=== PATIENT | female | born 1945 | race Caucasian/White ===

== ENCOUNTER 2021-03-19 18:14 | Inpatient (IN) | payer OTHER, MEDICAID ==
[~2021-03-19] VITALS: Ht 167.6 cm; Wt 84.4 kg
[2021-03-19] MEDS ORDERED: SODIUM CHLORIDE 0.9% 1,000 ML IV ONE ×3 (19:00→20:45)
[2021-03-19 19:26] LABS: BASOPHILS % 0.5 % (0.0-2.0); EOSINOPHILS % 4.4 % (0.0-5.0); HEMATOCRIT. 34.1 % (36.0-48.0); HEMOGLOBIN. 10.8 g/dL (12.0-16.0); LYMPHOCYTES % 19.7 % (20.0-50.0); MEAN CORPUSCULAR HEMOGLOBIN 29.8 pg (28.0-32.0); MEAN CORPUSCULAR VOLUME 93.6 fL (81.0-99.0); MEAN PLATELET VOLUME 9.6 fl (7.4-10.4); MONOCYTES % 4.5 % (2.0-8.0); NEUTROPHILS % 70.9 % (40.0-76.0); PLATELET 134 x1000/uL (130-400); RED BLOOD CELL COUNT 3.64 mill/uL (4.2-5.4); RED CELL DISTRIBUTION WIDTH 15.6 % (11.6-14.6)
[2021-03-19 19:27] LABS: CHLORIDE 131 mEq/L (98-107)
[2021-03-19 19:33] LABS: ETHANOL BLOOD < 10 mg/dL
[2021-03-19 19:33] LABS: BG BASE EXCESS 2.5 mmol/L (-2.0-2.0); BG DEOXYHEMOGLOBIN 5.8 % (0.0-5.0); BG FRACTION INSPIRED OXYGEN 21; BG HCO3 ACT 27.2 mmol/L (22.0-26.0); BG OXYGEN SATURATION 94.1 % (92.0-98.5); BG OXYHEMOGLOBIN 93.2 % (94.0-97.0); BG PCO2 42.3 mmHg (35.0-45.0); BG PH 7.426 (7.350-7.450); BG PO2 66.7 mmHg (75.0-100.0); BG SAMPLE SITE LEFT RADIAL; BG TOTAL HEMOGLOBIN 11.6 g/dL (12.0-18.0); BG VENT MODE ROOM AIR
[2021-03-19 20:21] LABS: CLARITY URINE TURBID (CLEAR); COLOR URINE YELLOW (YELLOW); KETONES URINE NEGATIVE (NEGATIVE); LEUKOCYTE ESTERASE URINE 3+ (NEGATIVE); NITRITE URINE NEGATIVE (NEGATIVE); OCCULT BLOOD URINE 2+ (NEGATIVE); PROTEIN URINE 2+ (NEGATIVE); SPECIFIC GRAVITY URINE 1.017 (1.005-1.030); UROBILINOGEN URINE 0.2 E.U./dL (0.2-1.0)
[2021-03-19 20:38] LABS: *AMPHETAMINES SCREEN URINE NEGATIVE (NEGATIVE); *BARBITURATES SCREEN URINE NEGATIVE (NEGATIVE); CANNABINOID URINE SCREEN NEGATIVE (NEGATIVE); METHADONE URINE SCREEN NEGATIVE (NEGATIVE); OPIATES URINE SCREEN NEGATIVE (NEGATIVE); PHENCYCLIDINE URINE SCREEN NEGATIVE (NEGATIVE)
[2021-03-19 20:39] LABS: *BENZODIAZEPINES SCREEN URINE NEGATIVE (NEGATIVE); *COCAINE SCREEN URINE NEGATIVE (NEGATIVE)
[2021-03-19] MEDS ORDERED: ASPIRIN 300MG SUPP PR ONE (20:45)
[2021-03-19] MEDS ORDERED: CEFTRIAXONE 1 G PREMIX 50 ML IV ONE (21:00)
[2021-03-20] MEDS: ACETAMINOPHEN 650MG SUPP PR SCH ×3 (00:09→18:07)
[2021-03-20] MEDS ORDERED: DEXT 5% WATER 500 ML IV SCH (02:15)
[2021-03-20] MEDS ORDERED: LABETALOL HCL 20MG/4ML CARPUJECT IV PRN (06:00)
[2021-03-20] MEDS ORDERED: LABETALOL 5MG/ML SYR 20 MG/4 ML SYRINGE IV PRN (07:00)
[2021-03-20] MEDS ORDERED: DEXT 5%/0.45% NACL 1000ML 1,000 ML IV SCH (10:00)
[2021-03-20 10:45] VITALS: BP 146/85
[2021-03-20] MEDS ORDERED: DEXTROSE 50% WATER 50ML SYRINGE IV PRN (11:00)
[2021-03-20 12:00] VITALS: BP 146/85
[2021-03-20] MEDS ORDERED: HYDRALAZINE 20MG/ML VIAL IV SCH (12:00)
[2021-03-20] MEDS: BLOOD SUGAR DIAGNOSTIC STRIP TEST SCH ×3 (12:20→21:00)
[2021-03-20] MEDS: INSULIN LISPRO 100 UNITS/ML SUBCUT SCH ×3 (13:19→21:13)
[2021-03-20 16:00] VITALS: BP 189/85
[2021-03-20] MEDS ORDERED: DEXTROSE 5% WATER 1,000 ML IV SCH (17:15)
[2021-03-20] MEDS: DEXTROSE 5% WATER 1,000 ML IV SCH (18:14)
[2021-03-20 20:00] VITALS: BP 158/82
[2021-03-20] MEDS: CEFTRIAXONE 1,000 MG in DEXTROSE 5% WATER 50 ML IV SCH (22:28)
[2021-03-21] VITALS: BP 142/76
[2021-03-21 00:48] LABS: CHLORIDE 129 mEq/L (98-107)
[2021-03-21] MEDS: DEXTROSE 5% WATER 1,000 ML IV SCH ×4 (02:24→18:28)
[2021-03-21 04:00] VITALS: BP 132/73
[2021-03-21] MEDS: BLOOD SUGAR DIAGNOSTIC STRIP TEST SCH ×4 (06:16→21:27)
[2021-03-21 08:00] VITALS: BP 144/66
[2021-03-21 08:18] LABS: VITAMIN B12 SERUM 708 pg/mL (211-911)
[2021-03-21] MEDS: INSULIN LISPRO 100 UNITS/ML SUBCUT SCH ×4 (10:04→21:42)
[2021-03-21 12:00] VITALS: BP 152/54
[2021-03-21 13:22] LABS: CHLORIDE 125 mEq/L (98-107)
[2021-03-21] MEDS ORDERED: DEXTROSE 5% WATER 1,000 ML IV SCH (14:30)
[2021-03-21 16:00] VITALS: BP 157/78
[2021-03-21 18:38] LABS: CHLORIDE 125 mEq/L (98-107)
[2021-03-21 20:22] VITALS: BP 117/53
[2021-03-21] MEDS: CEFTRIAXONE 1,000 MG in DEXTROSE 5% WATER 50 ML IV SCH (21:40)
[2021-03-22 00:04] VITALS: BP 153/71
[2021-03-22 04:00] VITALS: BP 110/68
[2021-03-22] MEDS: DEXTROSE 5% WATER 1,000 ML IV SCH (04:23)
[2021-03-22] MEDS ORDERED: CALCIUM GLUCONATE 1GM PREMIX 50 ML IV NR (06:30)
[2021-03-22] MEDS: BLOOD SUGAR DIAGNOSTIC STRIP TEST SCH ×2 (06:38→12:11)
[2021-03-22 08:00] VITALS: BP 119/63
[2021-03-22] MEDS ORDERED: LACTULOSE 20G/30ML UDC PO SCH (08:00)
[2021-03-22] MEDS: INSULIN LISPRO 100 UNITS/ML SUBCUT SCH ×2 (08:45→12:39)
[2021-03-22] MEDS: ACETAMINOPHEN 650MG SUPP PR SCH (12:00)
[2021-03-22 12:10] VITALS: BP 149/58
[2021-03-22 16:00] VITALS: BP 134/67
[2021-03-22] MEDS ORDERED: CEFEPIME 1,000 MG in DEXTROSE 5% WATER 50 ML IV SCH (16:00)
[2021-03-22 17:06] VITALS: BP 134/67
== END 2021-03-22 18:13 | disposition short-term general hospital (02) | DRG 91 ==
LOC: ER 18:14 → MICUSO 22:14 → EDBEDREQTM 22:17 → EDBEDREQ 22:17 → EDBEDREQSVC 22:17 → CANRESERV 22:46 → ENRESERV 22:46 → EDBEDREQSVC 22:57 → EDBEDREQTM 22:57 → 6WST 03-20 07:58
PROVIDERS: ADMIT Family Medicine Adult Medicine; ATTEND Family Medicine Adult Medicine
PROC: 0HBRXZZ Excision of Toe Nail, External Approach (ICD-10-PCS; principal; 2021-03-20)
PROC: 0HBRXZZ Excision of Toe Nail, External Approach (ICD-10-PCS; 2021-03-20)
PROC: 0HBRXZZ Excision of Toe Nail, External Approach (ICD-10-PCS; 2021-03-20)
PROC: 0HBRXZZ Excision of Toe Nail, External Approach (ICD-10-PCS; 2021-03-20)
PROC: 0HBRXZZ Excision of Toe Nail, External Approach (ICD-10-PCS; 2021-03-20)
PROC: 0HBRXZZ Excision of Toe Nail, External Approach (ICD-10-PCS; 2021-03-20)
PROC: 0HBRXZZ Excision of Toe Nail, External Approach (ICD-10-PCS; 2021-03-20)
PROC: 0HBRXZZ Excision of Toe Nail, External Approach (ICD-10-PCS; 2021-03-20)
PROC: 0HBRXZZ Excision of Toe Nail, External Approach (ICD-10-PCS; 2021-03-20)
PROC: 0HBRXZZ Excision of Toe Nail, External Approach (ICD-10-PCS; 2021-03-20)
DX: G92 Toxic encephalopathy (principal); L89.153 Pressure ulcer of sacral region, stage 3; E43 Unspecified severe protein-calorie malnutrition; N13.6 Pyonephrosis; J98.11 Atelectasis; T74.01XA Adult neglect or abandonment, confirmed, initial encounter; E87.0 Hyperosmolality and hypernatremia; N17.9 Acute kidney failure, unspecified; E86.0 Dehydration; L85.3 Xerosis cutis; L60.2 Onychogryphosis; I10 Essential (primary) hypertension; E11.65 Type 2 diabetes mellitus with hyperglycemia; S90.522A Blister (nonthermal), left ankle, initial encounter; X58.XXXA Exposure to other specified factors, initial encounter; E11.51 Type 2 diabetes mellitus with diabetic peripheral angiopathy without gangrene; E11.628 Type 2 diabetes mellitus with other skin complications; I87.2 Venous insufficiency (chronic) (peripheral); E87.5 Hyperkalemia; R77.8 Other specified abnormalities of plasma proteins; S90.821A Blister (nonthermal), right foot, initial encounter; S90.922A Unspecified superficial injury of left foot, initial encounter; S90.921A Unspecified superficial injury of right foot, initial encounter; I34.0 Nonrheumatic mitral (valve) insufficiency; Z79.899 Other long term (current) drug therapy; Y93.89 Activity, other specified; Y92.89 Other specified places as the place of occurrence of the external cause; Y99.8 Other external cause status; Z74.01 Bed confinement status; Z86.73 Personal history of transient ischemic attack (TIA), and cerebral infarction without residual deficits; Z68.30 Body mass index [BMI] 30.0-30.9, adult
CPT/HCPCS: 36415; 36600; 71045; 76770; 80048; 80053; 80305; 80320; 81003; 82040; 82140; 82375; 82550; 82607; 82805; 82962; 83036; 84134; 84443; 84484; 85025; 87077; 87186; 93005; 93306; 93923; 99291; C1893; J0610; J0692; J0696; J1815; J7030; J7060; J7070; A4315; G0480

== ENCOUNTER 2021-04-21 19:08 | Inpatient (IN) | payer OTHER, MEDICAID ==
[~2021-04-21] VITALS: Ht 160 cm; Wt 102.5 kg
[2021-04-21] MEDS ORDERED: ACETAMINOPHEN 650MG SUPP PR STA (21:34)
[2021-04-21] MEDS ORDERED: VANCOMYCIN 1 G PREMIX 200 ML IV ONE (21:45)
[2021-04-21] MEDS ORDERED: SODIUM CHLORIDE 0.9% 1000ML BAG (SEPSIS BOLUS) IV ONE (21:45)
[2021-04-21] MEDS ORDERED: PIPERACILLIN/TAZ 3.375G PREMIX 50 ML IV ONE (21:45)
[2021-04-21 22:36] LABS: CLARITY URINE CLOUDY (CLEAR); COLOR URINE YELLOW (YELLOW); KETONES URINE TRACE (NEGATIVE); LEUKOCYTE ESTERASE URINE 1+ (NEGATIVE); NITRITE URINE NEGATIVE (NEGATIVE); OCCULT BLOOD URINE 3+ (NEGATIVE); PROTEIN URINE 3+ (NEGATIVE); SPECIFIC GRAVITY URINE 1.019 (1.005-1.030)
[2021-04-21 22:56] LABS: HEMATOCRIT. 30.8 % (36.0-48.0); HEMOGLOBIN. 9.9 g/dL (12.0-16.0); PLATELET 332 x1000/uL (130-400); RED BLOOD CELL COUNT 3.31 mill/uL (4.2-5.4); RED CELL DISTRIBUTION WIDTH 15.2 % (11.6-14.6)
[2021-04-21 23:04] LABS: CHLORIDE 108 mEq/L (98-107)
[2021-04-21 23:27] LABS: PLATELET ESTIMATE NORMAL
[2021-04-21 23:34] LABS: INR 1.1; PROTHROMBIN TIME 11.5 sec (9.6-11.0)
[2021-04-22] MEDS ORDERED: IOHEXOL-300 100 ML BOTTLE ONE (03:57)
[2021-04-22 20:00] VITALS: BP 130/62
[2021-04-22] MEDS ORDERED: DEXTROSE 50% WATER 50ML SYRINGE IV PRN (21:30)
[2021-04-22] MEDS ORDERED: ONDANSETRON HCL 4MG/2ML INJ IV PRN (21:30)
[2021-04-22] MEDS ORDERED: ACETAMINOPHEN 650MG/20.3ML UDC PO PRN (21:30)
[2021-04-22] MEDS: SODIUM CHLORIDE 0.9% 1,000 ML IV SCH (22:40)
[2021-04-22] MEDS: VANCOMYCIN 1 G PREMIX 200 ML IV SCH (23:44)
[2021-04-23 01:20] VITALS: BP 110/59
[2021-04-23 02:49] LABS: CREATINE KINASE 21 IU/L (26-192)
[2021-04-23 02:51] LABS: CREATINE KINASE MB FRACTION 1.2 ng/mL (0.5-3.6)
[2021-04-23 04:00] VITALS: BP 135/64
[2021-04-23] MEDS: PIPERACILLIN/TAZOBACTAM 3.375 G in DEXTROSE 5% WATER 50 ML IV SCH ×3 (06:08→22:08)
[2021-04-23] MEDS: BLOOD SUGAR DIAGNOSTIC STRIP TEST SCH ×4 (07:20→22:08)
[2021-04-23] MEDS: INSULIN LISPRO 100 UNITS/ML SUBCUT SCH ×4 (07:50→22:09)
[2021-04-23 08:00] VITALS: BP 142/64
[2021-04-23] MEDS: HEPARIN 5000 UNITS/ML VIAL SUBCUT SCH ×2 (08:45→22:10)
[2021-04-23 09:36] LABS: HEMATOCRIT. 26.1 % (36.0-48.0); HEMOGLOBIN. 8.4 g/dL (12.0-16.0); MEAN CORPUSCULAR HEMOGLOBIN 29.5 pg (28.0-32.0); MEAN CORPUSCULAR VOLUME 91.3 fL (81.0-99.0); MEAN PLATELET VOLUME 8.4 fl (7.4-10.4); PLATELET 292 x1000/uL (130-400); RED BLOOD CELL COUNT 2.86 mill/uL (4.2-5.4); RED CELL DISTRIBUTION WIDTH 14.8 % (11.6-14.6)
[2021-04-23 09:43] LABS: CHLORIDE 112 mEq/L (98-107)
[2021-04-23 09:53] LABS: CREATINE KINASE 30 IU/L (26-192)
[2021-04-23 09:55] LABS: CREATINE KINASE MB FRACTION < 1.0 ng/mL (0.5-3.6)
[2021-04-23 12:00] VITALS: BP 162/78
[2021-04-23] MEDS: SODIUM CHLORIDE 0.9% 1,000 ML IV SCH (12:54)
[2021-04-23 13:11] LABS: PLATELET ESTIMATE NORMAL
[2021-04-23 16:00] VITALS: BP 155/76
[2021-04-23] MEDS ORDERED: AMLO5TAB88 PO (19:30)
[2021-04-23] MEDS ORDERED: ASPI-1497 PO (19:33)
[2021-04-23] MEDS ORDERED: FENO130C14 MT (19:35)
[2021-04-23] MEDS ORDERED: TRIC54 PO (19:35)
[2021-04-23] MEDS: ATORVASTATIN CALCIUM 20MG TABLET PO SCH (22:12)
[2021-04-24] VITALS (22 sets, daily range): BP systolic 102–199; BP diastolic 52–99
[2021-04-24] MEDS: VANCOMYCIN 1 G PREMIX 200 ML IV SCH (00:32)
[2021-04-24] MEDS: SODIUM CHLORIDE 0.9% 1,000 ML IV SCH ×2 (04:18→22:34)
[2021-04-24] MEDS: PIPERACILLIN/TAZOBACTAM 3.375 G in DEXTROSE 5% WATER 50 ML IV SCH ×3 (06:26→22:34)
[2021-04-24] MEDS: BLOOD SUGAR DIAGNOSTIC STRIP TEST SCH ×4 (07:20→21:00)
[2021-04-24] MEDS: INSULIN LISPRO 100 UNITS/ML SUBCUT SCH ×4 (07:50→21:00)
[2021-04-24] MEDS: HEPARIN 5000 UNITS/ML VIAL SUBCUT SCH (10:48)
[2021-04-24] MEDS ORDERED: LIDOCAINE HCL 1% 30ML VIAL (10MG/ML) ONE (17:28)
[2021-04-24] MEDS ORDERED: BUPIVACAINE HCL/PF 0.5% (5MG/ML) 10ML ONE (17:29)
[2021-04-24] MEDS ORDERED: POLYMYXIN B SULFATE 500000 UNITS/VIAL ONE (17:35)
[2021-04-24] MEDS ORDERED: ROCURONIUM BROMIDE 10MG/ML VIAL 5ML IV ONE (18:40)
[2021-04-24] MEDS ORDERED: FENTANYL CITRATE/PF 50MCG/ML 2ML VIAL ONE (18:40)
[2021-04-24] MEDS ORDERED: ONDANSETRON HCL 4MG/2ML INJ ONE (18:41)
[2021-04-24] MEDS ORDERED: PHENYLEPHRINE HCL 10 MG/ML 1ML (IV VIAL) IV ONE (18:41)
[2021-04-24] MEDS ORDERED: MIDAZOLAM HCL 2 MG/2 ML VIAL ONE (18:41)
[2021-04-24] MEDS ORDERED: PROPOFOL 200MG/20ML VIAL IV ONE (18:41)
[2021-04-24] MEDS ORDERED: GLYCOPYRROLATE 0.2 MG/ML 2ML VIAL ONE (18:41)
[2021-04-24] MEDS ORDERED: METOCLOPRAMIDE HCL 10MG/2ML VIAL ONE (18:41)
[2021-04-24] MEDS ORDERED: NEOSTIGMINE METHYLSULFATE 1MG/ML 10 ML VIAL ONE (18:41)
[2021-04-24] MEDS ORDERED: SUCCINYLCHOLINE CHLORIDE 200MG/10ML IV ONE (18:41)
[2021-04-24] MEDS ORDERED: CEFAZOLIN SODIUM 1000MG/VIAL ONE (18:41)
[2021-04-24] MEDS ORDERED: SODIUM CHLORIDE 0.9% 10ML VIAL ONE (18:41)
[2021-04-24] MEDS ORDERED: SODIUM CHLORIDE 0.9% 1,000 ML IV ONE (19:15)
[2021-04-24] MEDS ORDERED: HYDROMORPHONE HCL/PF 2MG/ML CPJ IV PRN (19:15)
[2021-04-24] MEDS ORDERED: MORPHINE SULFATE 2 MG/ML CPJ (NOT FOR IM USE) IV PRN (19:15)
[2021-04-24] MEDS ORDERED: MEPERIDINE HCL/PF 25MG/ML CPJ IV PRN (19:15)
[2021-04-24] MEDS ORDERED: ONDANSETRON HCL 4MG/2ML INJ IV PRN (19:15)
[2021-04-24] MEDS ORDERED: NALOXONE HCL 0.4MG/ML VIAL IV PRN (20:45)
[2021-04-24 21:34] LABS: BG BASE EXCESS -1.6 mmol/L (-2.0-2.0); BG CARBOXYHEMOGLOBIN 0.3 % (0.5-1.5); BG DEOXYHEMOGLOBIN 0.9 % (0.0-5.0); BG FRACTION INSPIRED OXYGEN 40; BG HCO3 ACT 22.3 mmol/L (22.0-26.0); BG METHEMOGLOBIN 0.3 % (0.0-1.5); BG OXYGEN SATURATION 99.1 % (92.0-98.5); BG OXYHEMOGLOBIN 98.5 % (94.0-97.0); BG PCO2 34.5 mmHg (35.0-45.0); BG PH 7.428 (7.350-7.450); BG PO2 197.7 mmHg (75.0-100.0); BG SAMPLE SITE LEFT RADIAL; BG TOTAL HEMOGLOBIN 11.1 g/dL (12.0-18.0); BG VENT MODE VENT - AC
[2021-04-24] MEDS ORDERED: PROPOFOL 10MG/ML 100ML 100 ML IV PRN (21:45)
[2021-04-24] MEDS: CLONIDINE 0.1MG TABLET PO PRN (22:42)
[2021-04-24] MEDS: ATORVASTATIN CALCIUM 20MG TABLET PO SCH (22:42)
[2021-04-24 23:21] LABS: HEMATOCRIT 32.1 % (36.0-48.0); HEMOGLOBIN 10.1 g/dL (12.0-16.0); MEAN CORPUSCULAR HEMOGLOBIN 28.7 pg (28.0-32.0); MEAN CORPUSCULAR VOLUME 90.9 fL (81.0-99.0); PLATELET 260 x1000/uL (130-400); RED BLOOD CELL COUNT 3.53 mill/uL (4.2-5.4); RED CELL DISTRIBUTION WIDTH 14.8 % (11.6-14.6)
[2021-04-25] VITALS (38 sets, daily range): BP systolic 109–160; BP diastolic 53–96
[2021-04-25] MEDS: VANCOMYCIN 1 G PREMIX 200 ML IV SCH (00:06)
[2021-04-25] MEDS: PIPERACILLIN/TAZOBACTAM 3.375 G in DEXTROSE 5% WATER 50 ML IV SCH ×3 (05:36→22:20)
[2021-04-25 06:16] LABS: HEMATOCRIT. 27.9 % (36.0-48.0); HEMOGLOBIN. 9.1 g/dL (12.0-16.0); MEAN CORPUSCULAR HEMOGLOBIN 29.7 pg (28.0-32.0); MEAN CORPUSCULAR VOLUME 90.9 fL (81.0-99.0); MEAN PLATELET VOLUME 8.5 fl (7.4-10.4); PLATELET 238 x1000/uL (130-400); RED BLOOD CELL COUNT 3.07 mill/uL (4.2-5.4); RED CELL DISTRIBUTION WIDTH 14.9 % (11.6-14.6)
[2021-04-25] MEDS: BLOOD SUGAR DIAGNOSTIC STRIP TEST SCH ×4 (07:50→22:22)
[2021-04-25] MEDS: INSULIN LISPRO 100 UNITS/ML SUBCUT SCH ×4 (09:22→22:25)
[2021-04-25] MEDS: SODIUM CHLORIDE 0.9% 1,000 ML IV SCH ×2 (11:06→11:10)
[2021-04-25 12:17] LABS: PLATELET ESTIMATE NORMAL
[2021-04-25 12:48] LABS: BG BASE EXCESS -3.4 mmol/L (-2.0-2.0); BG CARBOXYHEMOGLOBIN 0.3 % (0.5-1.5); BG DEOXYHEMOGLOBIN 1.1 % (0.0-5.0); BG FRACTION INSPIRED OXYGEN 40; BG HCO3 ACT 19.6 mmol/L (22.0-26.0); BG METHEMOGLOBIN 0.5 % (0.0-1.5); BG OXYGEN SATURATION 98.9 % (92.0-98.5); BG OXYHEMOGLOBIN 98.1 % (94.0-97.0); BG PCO2 28.6 mmHg (35.0-45.0); BG PH 7.454 (7.350-7.450); BG PO2 188.8 mmHg (75.0-100.0); BG SAMPLE SITE LEFT RADIAL; BG TOTAL HEMOGLOBIN 10.3 g/dL (12.0-18.0); BG VENT MODE VENT - CPAP
[2021-04-25] MEDS ORDERED: IPRATROPIUM/ALBUTEROL 0.5-3(2.5)MG/3ML NEB HHN PRN (13:00)
[2021-04-25] MEDS: ATORVASTATIN CALCIUM 20MG TABLET PO SCH (21:00)
[2021-04-26] VITALS (35 sets, daily range): BP systolic 106–186; BP diastolic 50–96
[2021-04-26] MEDS: SODIUM CHLORIDE 0.9% 1,000 ML IV SCH (02:30)
[2021-04-26] MEDS: PIPERACILLIN/TAZOBACTAM 3.375 G in DEXTROSE 5% WATER 50 ML IV SCH ×3 (05:45→22:40)
[2021-04-26] MEDS: CLONIDINE 0.1MG TABLET PO PRN ×2 (06:27→14:34)
[2021-04-26 07:43] LABS: BASOPHILS % 0.1 % (0.0-2.0); EOSINOPHILS % 1.4 % (0.0-5.0); HEMATOCRIT. 30.2 % (36.0-48.0); LYMPHOCYTES % 13.5 % (20.0-50.0); MEAN CORPUSCULAR HEMOGLOBIN 29.8 pg (28.0-32.0); MEAN CORPUSCULAR VOLUME 90.2 fL (81.0-99.0); MEAN PLATELET VOLUME 8.5 fl (7.4-10.4); MONOCYTES % 3.8 % (2.0-8.0); NEUTROPHILS % 81.2 % (40.0-76.0); PLATELET 233 x1000/uL (130-400); RED BLOOD CELL COUNT 3.35 mill/uL (4.2-5.4); RED CELL DISTRIBUTION WIDTH 15.2 % (11.6-14.6)
[2021-04-26] MEDS: BLOOD SUGAR DIAGNOSTIC STRIP TEST SCH ×4 (07:57→21:00)
[2021-04-26] MEDS: INSULIN LISPRO 100 UNITS/ML SUBCUT SCH ×4 (07:58→21:00)
[2021-04-26] MEDS: VANCOMYCIN 750 MG PREMIX 150 ML IV SCH (12:55)
[2021-04-26] MEDS: HEPARIN 5000 UNITS/ML VIAL SUBCUT SCH ×2 (14:26→21:00)
[2021-04-26] MEDS: ATORVASTATIN CALCIUM 20MG TABLET PO SCH (21:00)
[2021-04-27] VITALS (48 sets, daily range): BP systolic 116–171; BP diastolic 48–84
[2021-04-27] MEDS: MORPHINE SULFATE 4 MG/ML CPJ (NOT FOR IM USE) IV PRN ×2 (00:02→14:30)
[2021-04-27] MEDS: PIPERACILLIN/TAZOBACTAM 3.375 G in DEXTROSE 5% WATER 50 ML IV SCH ×3 (06:10→21:03)
[2021-04-27 06:40] LABS: BASOPHILS % 0.2 % (0.0-2.0); EOSINOPHILS % 3.4 % (0.0-5.0); HEMATOCRIT. 25.4 % (36.0-48.0); HEMOGLOBIN. 8.3 g/dL (12.0-16.0); LYMPHOCYTES % 12.7 % (20.0-50.0); MEAN CORPUSCULAR HEMOGLOBIN 29.3 pg (28.0-32.0); MEAN CORPUSCULAR VOLUME 89.4 fL (81.0-99.0); MEAN PLATELET VOLUME 8.3 fl (7.4-10.4); MONOCYTES % 3.9 % (2.0-8.0); NEUTROPHILS % 79.8 % (40.0-76.0); PLATELET 176 x1000/uL (130-400); RED BLOOD CELL COUNT 2.85 mill/uL (4.2-5.4); RED CELL DISTRIBUTION WIDTH 14.8 % (11.6-14.6)
[2021-04-27] MEDS: INSULIN LISPRO 100 UNITS/ML SUBCUT SCH ×4 (08:20→20:18)
[2021-04-27] MEDS: BLOOD SUGAR DIAGNOSTIC STRIP TEST SCH ×4 (08:28→20:01)
[2021-04-27] MEDS ORDERED: POTASSIUM CHLORIDE INJ 40 MEQ in DEXT 5% WATER 250 ML IV ONE (08:30)
[2021-04-27] MEDS: SODIUM CHLORIDE 0.9% 1,000 ML IV SCH ×2 (09:47)
[2021-04-27] MEDS: HEPARIN 5000 UNITS/ML VIAL SUBCUT SCH ×2 (09:48→20:18)
[2021-04-27] MEDS: KCL 20MEQ/100ML PREMIX 100 ML IV SCH ×2 (09:48→12:02)
[2021-04-27] MEDS: PANTOPRAZOLE SODIUM 40 MG/VIAL IV SCH (09:49)
[2021-04-27] MEDS: ATORVASTATIN CALCIUM 20MG TABLET PO SCH (20:17)
[2021-04-28] VITALS (34 sets, daily range): BP systolic 109–142; BP diastolic 46–67
[2021-04-28] MEDS: SODIUM CHLORIDE 0.9% 1,000 ML IV SCH (00:10)
[2021-04-28] MEDS: VANCOMYCIN 750 MG PREMIX 150 ML IV SCH (00:10)
[2021-04-28] MEDS: PIPERACILLIN/TAZOBACTAM 3.375 G in DEXTROSE 5% WATER 50 ML IV SCH ×3 (05:02→21:49)
[2021-04-28 06:55] LABS: BASOPHILS % 0.1 % (0.0-2.0); EOSINOPHILS % 2.6 % (0.0-5.0); HEMATOCRIT. 27.1 % (36.0-48.0); HEMOGLOBIN. 8.9 g/dL (12.0-16.0); LYMPHOCYTES % 11.4 % (20.0-50.0); MEAN CORPUSCULAR HEMOGLOBIN 29.3 pg (28.0-32.0); MEAN CORPUSCULAR VOLUME 89.7 fL (81.0-99.0); MEAN PLATELET VOLUME 8.4 fl (7.4-10.4); MONOCYTES % 3.4 % (2.0-8.0); NEUTROPHILS % 82.5 % (40.0-76.0); PLATELET 175 x1000/uL (130-400); RED BLOOD CELL COUNT 3.02 mill/uL (4.2-5.4)
[2021-04-28] MEDS: BLOOD SUGAR DIAGNOSTIC STRIP TEST SCH ×4 (07:50→21:49)
[2021-04-28] MEDS: INSULIN LISPRO 100 UNITS/ML SUBCUT SCH ×4 (08:20→21:00)
[2021-04-28] MEDS: PANTOPRAZOLE SODIUM 40 MG/VIAL IV SCH (09:39)
[2021-04-28] MEDS: HEPARIN 5000 UNITS/ML VIAL SUBCUT SCH ×2 (09:39→21:49)
[2021-04-28] MEDS: ATORVASTATIN CALCIUM 20MG TABLET PO SCH (21:49)
[2021-04-29] VITALS (14 sets, daily range): BP systolic 139–185; BP diastolic 60–91
[2021-04-29] MEDS: PIPERACILLIN/TAZOBACTAM 3.375 G in DEXTROSE 5% WATER 50 ML IV SCH ×3 (05:12→22:51)
[2021-04-29] MEDS: BLOOD SUGAR DIAGNOSTIC STRIP TEST SCH ×4 (07:30→21:13)
[2021-04-29] MEDS: INSULIN LISPRO 100 UNITS/ML SUBCUT SCH ×4 (08:00→21:00)
[2021-04-29] MEDS: FENOFIBRATE NANOCRYSTALLIZED 145MG TABLET PO SCH ×3 (09:00→12:29)
[2021-04-29] MEDS: PANTOPRAZOLE SODIUM 40 MG/VIAL IV SCH (09:09)
[2021-04-29] MEDS: HEPARIN 5000 UNITS/ML VIAL SUBCUT SCH ×2 (09:09→21:23)
[2021-04-29] MEDS: ASPIRIN 81MG EC TABLET PO SCH (09:10)
[2021-04-29] MEDS ORDERED: MORPHINE SULFATE 2 MG/ML CPJ (NOT FOR IM USE) IV PRN (12:28)
[2021-04-29] MEDS: ATORVASTATIN CALCIUM 20MG TABLET PO SCH (21:23)
[2021-04-30] VITALS (10 sets, daily range): BP systolic 128–156; BP diastolic 62–80
[2021-04-30] MEDS: BLOOD SUGAR DIAGNOSTIC STRIP TEST SCH ×2 (07:30→12:30)
[2021-04-30] MEDS: INSULIN LISPRO 100 UNITS/ML SUBCUT SCH ×2 (08:00→13:00)
[2021-04-30] MEDS: PANTOPRAZOLE SODIUM 40 MG/VIAL IV SCH (09:00)
[2021-04-30] MEDS: ASPIRIN 81MG EC TABLET PO SCH (09:18)
[2021-04-30] MEDS: FENOFIBRATE NANOCRYSTALLIZED 145MG TABLET PO SCH (09:19)
[2021-04-30] MEDS: HEPARIN 5000 UNITS/ML VIAL SUBCUT SCH (09:19)
== END 2021-04-30 19:48 | disposition home health service (06) | DRG 853 ==
LOC: ER 19:08 → EDBEDREQSVC 04-22 15:22 → EDBEDREQ 04-22 15:22 → EDBEDREQTM 04-22 15:22 → ENRESERV 04-22 19:09 → 6WST 04-22 20:55 → UNDODISIN 04-23 18:20 → CVICU 04-24 20:30 → 5EST 04-28 17:55
PROVIDERS: ADMIT Internal Medicine; ATTEND Internal Medicine
PROC: 0QB10ZZ Excision of Sacrum, Open Approach (ICD-10-PCS; principal; 2021-04-24)
PROC: 30233N1 Transfusion of Nonautologous Red Blood Cells into Peripheral Vein, Percutaneous Approach (ICD-10-PCS; 2021-04-24)
DX: A40.8 Other streptococcal sepsis (principal); L89.154 Pressure ulcer of sacral region, stage 4; E43 Unspecified severe protein-calorie malnutrition; L03.317 Cellulitis of buttock; N17.9 Acute kidney failure, unspecified; I96 Gangrene, not elsewhere classified; L02.31 Cutaneous abscess of buttock; Z68.41 Body mass index [BMI] 40.0-44.9, adult; E11.52 Type 2 diabetes mellitus with diabetic peripheral angiopathy with gangrene; M86.8X8 Other osteomyelitis, other site; R91.1 Solitary pulmonary nodule; D64.9 Anemia, unspecified; L85.3 Xerosis cutis; E66.9 Obesity, unspecified; R65.20 Severe sepsis without septic shock; I13.10 Hypertensive heart and chronic kidney disease without heart failure, with stage 1 through stage 4 chronic kidney disease, or unspecified chronic kidney disease; E11.22 Type 2 diabetes mellitus with diabetic chronic kidney disease; N18.9 Chronic kidney disease, unspecified; E11.69 Type 2 diabetes mellitus with other specified complication; N30.91 Cystitis, unspecified with hematuria; B96.5 Pseudomonas (aeruginosa) (mallei) (pseudomallei) as the cause of diseases classified elsewhere; S90.522A Blister (nonthermal), left ankle, initial encounter; S80.822A Blister (nonthermal), left lower leg, initial encounter; B95.2 Enterococcus as the cause of diseases classified elsewhere; T83.39XA Other mechanical complication of intrauterine contraceptive device, initial encounter; S91.302A Unspecified open wound, left foot, initial encounter; S91.301A Unspecified open wound, right foot, initial encounter; Z20.822 Contact with and (suspected) exposure to COVID-19; Y83.1 Surgical operation with implant of artificial internal device as the cause of abnormal reaction of the patient, or of later complication, without mention of misadventure at the time of the procedure; X58.XXXA Exposure to other specified factors, initial encounter; Y93.89 Activity, other specified; Y92.89 Other specified places as the place of occurrence of the external cause; Y99.8 Other external cause status; Z90.49 Acquired absence of other specified parts of digestive tract; Z79.82 Long term (current) use of aspirin; Z86.73 Personal history of transient ischemic attack (TIA), and cerebral infarction without residual deficits; Z74.01 Bed confinement status
CPT/HCPCS: 36415; 36600; 71045; 74177; 80048; 80053; 80202; 81003; 82375; 82550; 82553; 82805; 82962; 83036; 83605; 83735; 83880; 84145; 84478; 84484; 85025; 85027; 86850; 86900; 86920; 87070; 87075; 87077; 87186; 87426; 87804; 88304; 88311; 92610; 93005; 94002; 94003; 96365; 96368; 99291; A6261; C9113; J0330; J0690; J1644; J1815; J2250; J2270; J2370; J2405; J2543; J2704; J2710; J2765; J3010; J3370; J3480; J3490; J7030; J7060; P9016; Q9967; A4315